=== PATIENT | male | born 1950 | race Caucasian/White ===

== ENCOUNTER 2016-04-11 22:51 | Emergency (ER) | payer OTHER, MEDICARE ==
[2016-04-11] MEDS ORDERED: IBUPROFEN 800 MG TABLET PO STA (23:12)
[2016-04-11] MEDS ORDERED: IBUPROFEN 800 MG TABLET PO ONE (23:13)
[2016-04-11] MEDS ORDERED: IPRATROPIUM/ALBUTEROL 3 ML NEB INH STA (23:54)
[2016-04-11] MEDS ORDERED: IPRATROPIUM/ALBUTEROL 3 ML NEB INH ONE (23:59)
[2016-04-12] MEDS ORDERED: OSELTAMIVIR 75 MG CAPSULE PO STA (00:52)
[2016-04-12] MEDS ORDERED: OSELTAMIVIR 75 MG CAPSULE PO ONE (00:55)
== END 2016-04-12 02:28 | disposition home or self-care (01) ==
DX: B34.9 Viral infection, unspecified (principal); R06.00 Dyspnea, unspecified; R00.0 Tachycardia, unspecified
CPT/HCPCS: 36415; 71020; 85379; 87275; 87276; 94640; 99283; 99284; A9270; J7620

== ENCOUNTER 2021-03-27 10:43 | Outpatient (CLI) | payer MEDICARE, OTHER | END 2021-03-27 23:59 | disposition home or self-care (01) | LOC: LAB.R 10:43 | PROVIDERS: ATTEND Internal Medicine | DX: U07.1 COVID-19 (principal) ==

== ENCOUNTER 2021-10-02 14:38 | Emergency (ER) | payer MEDICARE, OTHER ==
[2021-10-02 14:45] VITALS: BP 170/90
[2021-10-02] MEDS ORDERED: methocarbamoL 500 MG TABLET PO STA (15:37)
[2021-10-02] MEDS ORDERED: KETOROLAC 30 MG/ML VIAL IM STA (15:37)
[2021-10-02] MEDS ORDERED: ACETAMINOPHEN 325 MG TABLET PO STA (15:37)
--- NOTE | 2021-10-02 15:37 | ED Physician Documentation ---
PD HPI LOWER EXT INJURY - Stated complaint Stated Complaint: R HIP PX - Chief complaint Chief Complaint: Trauma Ext - History obtained from History obtained from: Patient - History of Present Illness PD HPI LOW EXT INJURY LOCATION: Right - Additional information Additional information: 71-year-old male presents for evaluation of right hip pain. Patient states that he had mild pain in his right hip and right knee after a fall 2 weeks prior, and it had gradually improved, however after sitting on a barstool today the pain became much worse. Pain is aching, constant, worse with movement. Nothing makes it better, reports associated numb sensation at the top of his thigh. Patient denies difficulty ambulating, denies bowel or bladder incontinence, denies saddle anesthesia. Review of Systems Ten Systems: 10 systems reviewed and negative Constitutional: denies: Fever, Chills Nose: denies: Rhinorrhea / runny nose, Foreign Body Cardiac: denies: Chest pain / pressure, Palpitations, Pedal edema Respiratory: denies: Dyspnea, Cough GI: denies: Abdominal Pain, Nausea, Vomiting, Constipation, Diarrhea : denies: Dysuria, Frequency, Unable to Void Skin: denies: Rash, Lesions Musculoskeletal: reports: Joint pain (R hip). denies: Extremity pain Neurologic: reports: Numbness (top of R thigh). denies: Generalized weakness, Focal weakness PD PAST MEDICAL HISTORY - Past Medical History Cardiovascular: None Respiratory: None Endocrine/Autoimmune: None GI: GERD - Past Surgical History Past Surgical History: No - Present Medications Home Medications: Ambulatory Orders Medication Instructions Recorded Confirmed Esomeprazole Magnesium [Nexium] 40 mg PO DAILY 04/11/16 04/11/16 Albuterol Sulfate [Proventil Hfa 1 - 2 puffs INH Q4H PRN #1 inhaler 04/12/16 Inhaler] Oseltamivir [Tamiflu] 75 mg PO BID #10 capsule 04/12/16 Naproxen 500 mg PO BID #30 tab 10/02/21 dexAMETHasone [Decadron] 4 mg PO BIDWM #10 tablet 10/02/21 methocarbamoL [Robaxin] 500 mg PO Q6H #20 tablet 10/02/21 - Allergies Allergies/Adverse Reactions: Allergies Allergy/AdvReac Type Severity Reaction Status Date / Time calamine [From Caladryl] Allergy Hives Verified 10/02/21 14:46 camphor [From Caladryl] Allergy Hives Verified 10/02/21 14:46 pramoxine HCl * Allergy Hives Verified 10/02/21 14:46 [From Caladryl] - Social History Does the pt smoke?: No Smoking Status: Never smoker Does the pt drink ETOH?: No Does the pt have substance abuse?: No - Immunizations Immunizations are current?: Yes - POLST Patient has POLST: No PD ED PE NORMAL - Vitals Vital signs reviewed: Yes - General General: Alert and oriented X 3, Well developed/nourished, Other (in pain) - HEENT HEENT: Atraumatic, PERRL, EOMI, Ears normal - Neck Neck: Supple, no meningeal sign, No bony TTP - Cardiac Cardiac: RRR, No rub, Strong equal pulses - Respiratory Respiratory: No respiratory distress, Clear bilaterally - Abdomen Abdomen: Soft, Non tender, Non distended, No organomegaly - Male Male : Deferred - Rectal Rectal: Deferred - Back Back: No CVA TTP, No spinal TTP, Other (healing bruise R flank) - Derm Derm: Warm and dry, No rash - Extremities Extremities: No deformity, No tenderness to palpate, No edema, Other (Positive GIRISH test R side, negative straight leg raise bilaterally) - Neuro Neuro: Alert and oriented X 3, 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 Neurovascularly intact, patient reports a numb sensation over the top of his thigh, however sensation is intact and equal bilaterally, patient ambulatory, no difference in sensation between legs. Positive GIRISH test on right side, negative straight leg raise bilaterally. Patient's reported concern that the patient possibly has a renal injury after his fall from 2 weeks ago. Renal injury considered highly unlikely however CT imaging offered to patient if there was concern for underlying injury from the fall 2 [address]. Patient declined CT imaging, stated that he did not think that was was going on today and requesting medications only for symptoms. X-ray imaging negative for acute findings. Mild improvement with medications provided. Numerous nonnarcotic analgesia sent to pharmacy, patient counseled on stretching exercises and PCP follow up. Strict ED return precautions provided. Departure - Departure Disposition: Home, Self Care Clinical Impression: Sciatica Qualifiers: Laterality: right Qualified Code(s): M54.31 - Sciatica, right side Condition: Stable Instructions: ED Back Care Tips, ED Exercises Lumbar Muscles, ED Sciatica Prescriptions: dexAMETHasone [Decadron] 4 mg PO BIDWM #10 tablet Naproxen 500 mg PO BID #30 tab methocarbamoL [Robaxin] 500 mg PO Q6H #20 tablet Discharge Date/Time: 10/02/21 17:28
[2021-10-02] MEDS ORDERED: LIDOCAINE PATCH 5% TOP STA (15:38)
[2021-10-02] MEDS ORDERED: CHERRY SYRUP 10 ML UDC PO ONE (15:38)
[2021-10-02] MEDS ORDERED: DEXAMETHASONE 10 MG/ML VIAL PO STA (15:38)
--- NOTE | 2021-10-02 15:41 | XRAY Report ---
PROCEDURE: Hip w/Pelvis 2-3V RT INDICATIONS: hip/knee pain TECHNIQUE: AP pelvis with lateral view(s) of the right hip(s). COMPARISON: None. FINDINGS: Bones: No fractures or dislocations. Moderate bilateral hip joint osteoarthritic changes are seen w ith superior joint space narrowing and subchondral sclerosis. No evidence of avascular necrosis of fe moral head. Pelvic ring appears intact. No suspicious bony lesions. Soft tissues: The visualized bowel gas pattern is normal. No suspicious soft tissue calcifications. IMPRESSION: No acute right hip fracture or dislocation. Bilateral hip joint osteoarthritis. No eviden ce of avascular necrosis. Reviewed by: Jamie Navas MD on 10/02/2021 3:39 PM PDT Approved by: Jamie Navas MD on 10/02/2021 3:39 PM PDT Station ID: [id number]
--- NOTE | 2021-10-02 15:41 | XRAY Report ---
PROCEDURE: Knee 4 View RT INDICATIONS: hip/knee pain TECHNIQUE: 4 views of the right knee(s) were acquired. COMPARISON: None. FINDINGS: Bones: No fractures or dislocations. Mild to moderate tricompartmental osteoarthritis in right knee is seen more prominent in medial femoral tibial compartment. No suspicious bony lesions. Soft tissues: Moderate suprapatellar joint effusion is seen. No suspicious soft tissue calcification s. IMPRESSION: Mild to moderate tricompartmental osteoarthritis in right knee. Moderate suprapatellar j oint effusion. No acute fracture or dislocation. Reviewed by: Jamie Navas MD on 10/02/2021 3:39 PM PDT Approved by: Jamie Navas MD on 10/02/2021 3:39 PM PDT Station ID: [id number]
== END 2021-10-02 17:28 | disposition home or self-care (01) ==
LOC: ED 14:38
DX: M54.31 Sciatica, right side (principal)
CPT/HCPCS: 73502; 73564; 99284; A9270; 86850; 86900; 86901

== ENCOUNTER 2022-11-23 12:40 | Outpatient (CLI) | payer MEDICARE, OTHER | END 2022-11-23 12:41 | disposition critical access hospital (66) | LOC: EMS 12:40 | DX: S99.912A Unspecified injury of left ankle, initial encounter (principal); W11.XXXA Fall on and from ladder, initial encounter; Y93.89 Activity, other specified; Y92.008 Other place in unspecified non-institutional (private) residence as the place of occurrence of the external cause | CPT/HCPCS: A0425; A0427 ==

== ENCOUNTER 2022-11-23 13:04 | Emergency (ER) | payer MEDICARE, OTHER ==
[2022-11-23] MEDS ORDERED: SODIUM CHLORIDE 0.9% 1,000 ML IV STA (13:20)
[2022-11-23] MEDS ORDERED: HYDROmorphone 1 MG/ML CARPUJECT IVP STA ×2 (13:20→14:35)
--- NOTE | 2022-11-23 13:30 | ED Physician Documentation ---
History of Present Illness - Stated complaint Stated Complaint: L FOOT/ANKLE PX/FALL FROM LADDER - Chief complaint Chief Complaint: Trauma Ext - History obtained from History obtained from: Patient - History of Present Illness Timing: How many hours ago (1) - Additonal information Additional information: Patient is a 72-year-old male who presents to the emergency department after a fall off of a ladder while picking plums today. He landed on the left ankle and states that the foot was pointing sideways. EMS was called and placed him in a splint, given 150 mcg of fentanyl. And then the patient was brought into the emergency department. Neurovascular intact. No head, neck, back pain. Does not take any medications at home. No cardiac history. No loss of consciousness. No vomiting. No bleeding. No lacerations or open fractures. Review of Systems Constitutional: denies: Fever, Chills Respiratory: denies: Cough GI: denies: Nausea, Vomiting, Diarrhea Skin: denies: Rash Musculoskeletal: denies: Neck pain, Back pain Neurologic: denies: Headache, Head injury, LOC PD PAST MEDICAL HISTORY - Past Medical History Past Medical History: Yes Cardiovascular: None Respiratory: None Endocrine/Autoimmune: None GI: GERD - Past Surgical History Past Surgical History: No - Present Medications Home Medications: Ambulatory Orders Medication Instructions Recorded Confirmed Esomeprazole Magnesium [Nexium] 40 mg PO DAILY 04/11/16 04/11/16 Albuterol Sulfate [Proventil Hfa 1 - 2 puffs INH Q4H PRN #1 inhaler 04/12/16 Inhaler] Oseltamivir [Tamiflu] 75 mg PO BID #10 capsule 04/12/16 Naproxen 500 mg PO BID #30 tab 10/02/21 dexAMETHasone [Decadron] 4 mg PO BIDWM #10 tablet 10/02/21 methocarbamoL [Robaxin] 500 mg PO Q6H #20 tablet 10/02/21 - Allergies Allergies/Adverse Reactions: Allergies Allergy/AdvReac Type Severity Reaction Status Date / Time calamine [From Caladryl] Allergy Hives Verified 11/23/22 13:18 camphor [From Caladryl] Allergy Hives Verified 11/23/22 13:18 pramoxine HCl * Allergy Hives Verified 11/23/22 13:18 [From Caladryl] - Social History Does the pt smoke?: No Smoking Status: Never smoker Does the pt drink ETOH?: No Does the pt have substance abuse?: No - Immunizations Immunizations are current?: Yes - POLST Patient has POLST: No PD ED PE NORMAL - Vitals Vital signs reviewed: Yes - General General: Alert and oriented X 3, No acute distress - HEENT HEENT: Atraumatic, PERRL - Neck Neck: Supple, no meningeal sign, No bony TTP - Cardiac Cardiac: RRR - Respiratory Respiratory: No respiratory distress, Clear bilaterally - Abdomen Abdomen: Soft, Non tender, Non distended - Back Back: No spinal TTP - Derm Derm: Warm and dry - Extremities Extremities: Other (Obvious deformity to the left ankle, moderate swelling. Neurovascular intact. No knee or hip pain on the left side. No foot tenderness.) - Neuro Neuro: Alert and oriented X 3 - Psych Psych: Normal mood, Normal affect Results - Vitals Vitals: Vital Signs - 24 hr 11/23/22 11/23/22 11/23/22 13:14 14:21 14:24 Temperature 36.8 C Heart Rate 74 72 66 Respiratory 18 13 22 Rate Blood Pressure 165/96 H 166/93 H 166/93 H O2 Saturation 100 99 97 11/23/22 11/23/22 11/23/22 14:27 14:32 14:35 Temperature Heart Rate 66 70 78 Respiratory 26 H 25 H 22 Rate Blood Pressure 126/105 H 162/87 H O2 Saturation 99 95 11/23/22 14:43 Temperature Heart Rate 73 Respiratory 17 Rate Blood Pressure 150/82 H O2 Saturation 97 Oxygen O2 Source Room air - Rads (name of study) Left ankle x-ray Relevant Findings:: Final report received, See rad report Left tib-fib x-ray Relevant Findings:: Final report received, See rad report Procedures - Splint (location) - Minor Left lower extremity Splint applied by: Physician, Tech Type of splint: Fiberglass, Short leg, Posterior, Stirrup Other: Patient tolerated well, No complications, Neurovascular intact - Reduction Body part reduced: Left, Ankle Fracture or dislocation: Fracture dislocation Anesthesia: Other (propofol) Reduction aftercare: NV intact, Xray confirms reduction, Alignment improved, Splint applied, Patient tolerated well - Procedural sedation Sedation prep: Informed consent, Time out completed, Last meal, ASA 1 - healthy, IV O2 monitor, ET CO2 monitor, RT present Sedation Medications: propofol Mallampati classification: II Patient status during sedation: Vitals remained stable, Maintained airway, Recovered uneventfully Sedation recovery: Recovered uneventfully Time in sedation (Minutes): 20 PD Medical Decision Making - ED course Complexity details: reviewed results, re-evaluated patient, considered differential, d/w patient, d/w family ED course: Patient with a complex distal tibia/fibula fracture and ankle dislocation. NVI. Reduced and splinted. Discussed with Dr. Rodriguez, orthopedics who recommends discussion with [facility] for potential transfer. Discussed with [facility], Dr. Siu (ortho) and recommends Transfer for operative repair. Discussed the case with Dr. Ammon Mcwilliams, emergency department physician at [facility]. COBRA forms completed. This document was made in part using voice recognition software. While efforts are made to proofread this document, sound alike and grammatical errors may occur. Departure - Departure Disposition: 02 Transfer Acute Care Hosp Clinical Impression: Trimalleolar fracture of left ankle Qualifiers: Encounter type: initial encounter Fracture type: closed Qualified Code(s): S82.852A - Displaced trimalleolar fracture of left lower leg, initial encounter for closed fracture Condition: Stable Forms: PCP List
[2022-11-23] MEDS ORDERED: PROPOFOL 200 MG/20 ML VIAL IVP STA (13:49)
--- NOTE | 2022-11-23 14:14 | XRAY Report ---
PROCEDURE: Ankle 3 View LT INDICATIONS: fall, ankle pain TECHNIQUE: 3 views of the ankle were acquired. COMPARISON: None. FINDINGS: Bones: There is a moderately displaced and angulated comminuted fracture of the distal tibia. Modera tely displaced and angulated comminuted fracture distal fibula. Soft tissues: No tibiotalar joint effusion. Achilles tendon appears normal. IMPRESSION: Distal tibial and fibular fractures. Reviewed by: Joanna Solorzano MD on 11/23/2022 2:12 PM PDT Approved by: Joanna Solorzano MD on 11/23/2022 2:12 PM PDT Station ID: [id number]
--- NOTE | 2022-11-23 14:14 | XRAY Report ---
PROCEDURE: Tib/Fib LT INDICATIONS: fall, leg pain TECHNIQUE: 2 views of the tibia and fibula were acquired. COMPARISON: None. FINDINGS: Bones: Moderately displaced and evaluated comminuted fractures of the distal tibia and fibula. Soft tissues: No suspicious soft tissue calcifications or masses. IMPRESSION: Distal tibial and fibular fractures. Reviewed by: Joanna Solorzano MD on 11/23/2022 2:13 PM PDT Approved by: Joanna Solorzano MD on 11/23/2022 2:13 PM PDT Station ID: [id number]
[2022-11-23] MEDS ORDERED: diazePAM INJ 5 MG/ML SYRINGE IVP STA (15:26)
--- NOTE | 2022-11-23 15:41 | XRAY Report ---
PROCEDURE: Ankle 3 View LT INDICATIONS: L ankle post reduction TECHNIQUE: 3 views of the ankle were acquired. COMPARISON: Left ankle radiographs same day FINDINGS: Overlying casting material appears fine bony detail. Redemonstrated comminuted and displaced distal t ibia and fibular fractures. Distraction of tibial fracture fragments appears slightly improved. Fibul ar fracture angulation appears slightly improved however comparison is difficult due to differences i n exam positioning. IMPRESSION: Distal tibia and fibula fractures post reduction. Reviewed by: Karson Yarbrough MD on 11/23/2022 3:40 PM PDT Approved by: Karson Yarbrough MD on 11/23/2022 3:40 PM PDT Station ID: [id number]
[2022-11-23 19:35] VITALS: BP 140/80; O2SAT 100
== END 2022-11-23 19:31 | disposition short-term general hospital (02) ==
LOC: ED 13:04
DX: S82.852A Displaced trimalleolar fracture of left lower leg, initial encounter for closed fracture (principal); W11.XXXA Fall on and from ladder, initial encounter; Y93.89 Activity, other specified; Z79.899 Other long term (current) drug therapy
CPT/HCPCS: 27788; 94770; 99152; 99284

== ENCOUNTER 2022-11-23 19:31 | Outpatient (CLI) | payer MEDICARE, OTHER | END 2022-11-23 23:59 | disposition short-term general hospital (02) | LOC: EMS 19:31 | PROVIDERS: ATTEND Emergency Medicine | DX: S82.892A Other fracture of left lower leg, initial encounter for closed fracture (principal); W11.XXXA Fall on and from ladder, initial encounter; Y92.009 Unspecified place in unspecified non-institutional (private) residence as the place of occurrence of the external cause | CPT/HCPCS: A0425; A0426 ==

== ENCOUNTER 2023-03-19 12:23 | Outpatient (CLI) | payer MEDICARE, OTHER ==
--- NOTE | 2023-03-19 15:07 | Ultrasound Report ---
PROCEDURE: Extremity Soft Tissue Limited INDICATIONS: INFECTED WOUND LT LOWER LEG TECHNIQUE: Real-time scanning was performed of the left lower medial leg in the area of wound/bliste rs, with image documentation. COMPARISON: None. FINDINGS: In the area of current clinical concern within the soft tissues is a hypoechoic mobile are a of material with no internal vascularity, measuring up to 2.9 x 3.7 x 1.0 cm. The appearance is mos t likely a manifestation of abscess formation. IMPRESSION: Presumed abscess measuring 2.9 x 3.7 x 1.0 cm in the soft tissues immediately deep to th e area of current clinical concern. If clinically warranted additional anatomic detail could be obtai terry by contrast-enhanced CT or MR scanning. Reviewed by: Sanchez Tidwell MD on 03/19/2023 3:06 PM PST Approved by: Sanchez Tidwell MD on 03/19/2023 3:06 PM PST Station ID: [id number]
== END 2023-03-19 12:24 | disposition home or self-care (01) ==
LOC: DI 12:23
PROVIDERS: ATTEND Internal Medicine
DX: L08.9 Local infection of the skin and subcutaneous tissue, unspecified (principal)

== ENCOUNTER 2023-08-02 15:18 | Outpatient (CLI) | payer MEDICARE, OTHER ==
--- NOTE | 2023-08-02 16:36 | XRAY Report ---
PROCEDURE: Hip w/Pelvis 2-3V RT INDICATIONS: BACK PAIN/HIP PAIN TECHNIQUE: 2 views of the hip were acquired. COMPARISON: None. FINDINGS: Bones: No fractures or dislocations. No suspicious bony lesions. Soft tissues: No suspicious soft tissue calcifications or masses. IMPRESSION: No acute bony abnormality. If there remains a high clinical concern for fracture, consider cross-sect ional imaging now. If pain persists, consider repeat x-ray in 10-14 days or cross-sectional imaging. Reviewed by: Fidelina Carr MD on 08/02/2023 4:35 PM PDT Approved by: Fidelina Carr MD on 08/02/2023 4:35 PM PDT Station ID: [id number]
--- NOTE | 2023-08-03 00:53 | XRAY Report ---
PROCEDURE: Lumbar Spine 2-3V INDICATIONS: BACK PAIN/HIP PAIN TECHNIQUE: 3 view(s) of the lumbar spine were acquired. COMPARISON: None. FINDINGS: Bones: Vertebral body height and alignment is maintained. No suspicious bony lesions. Soft tissues: Overlying bowel gas pattern is normal. No suspicious soft tissue calcifications. IMPRESSION: Unremarkable lumbar spine radiographs Reviewed by: Jorge Kamara MD on 08/02/2023 11:52 PM AKDT Approved by: Jorge Kamara MD on 08/02/2023 11:52 PM AKDT Station ID: [id number]
== END 2023-08-02 15:19 | disposition home or self-care (01) ==
LOC: DI 15:18
PROVIDERS: ATTEND Internal Medicine
DX: M54.9 Dorsalgia, unspecified (principal); M25.551 Pain in right hip

== ENCOUNTER 2023-08-13 09:39 | Outpatient (CLI) | payer MEDICARE, OTHER ==
--- NOTE | 2023-08-13 13:01 | MRI Report ---
PROCEDURE: Lumbar Spine WO INDICATIONS: LOW BACK PAIN TECHNIQUE: Noncontrast sagittal T1 spin echo and T2 fast echo, sagittal STIR, axial T1 and T2 fast spin echo thr ough the lumbar spine. In cases with scoliosis, additional coronal T2 fast spin echo may be performe d. COMPARISON: X-ray lumbar spine 08/02/2023 FINDINGS: Image quality: Excellent. Alignment and Curvature: There is normal bony alignment. Bone Marrow: Marrow is of normal overall signal. Focus of increased T1 and T2 signal present L1 sugg estive of hemangioma. No acute vertebral body compression fractures. Spinal Cord: Conus medullaris terminates at the L1 level. Visualized cord demonstrates normal signa l and size. Paraspinous Soft Tissues: Heterogeneous appearing mass measuring 1.7 x 1.7 cm in the posterior right paraspinous muscle at the level of L1 is present on series 6 image 13. No prior exams are available f or comparison. Scattered bilateral simple renal cysts are present. Discs: Scattered mild multilevel disc desiccation. T12-L1: No disc bulge, spinal stenosis or foraminal narrowing. L1-L2: No disc bulge, spinal stenosis or foraminal narrowing. L2-L3: Minimal disc bulge without spinal stenosis or foraminal narrowing. Facet and ligamentum fla vum hypertrophy are present. L3-L4: Mild disc bulge with moderate to severe spinal stenosis. Minimal to mild bilateral foraminal narrowing with facet and ligamentum flavum hypertrophy. L4-L5: Mild disc bulge with moderate spinal stenosis. Moderate right foraminal narrowing with facet and ligamentum flavum hypertrophy. L5-S1: Mild disc bulge with moderate spinal stenosis. Moderate to severe bilateral foraminal narrow ing, right greater than left. Facet and ligamentum flavum hypertrophy are present. IMPRESSION: Scattered multilevel disc bulges. Multilevel spinal stenosis most severe at L3-4 secondary to disc bulge with contributing effect of fa cet/ligamentum flavum arthropathy. 1.7 x 1.7 cm posterior right paraspinous muscle mass at the level of L1 as described above. Etiology is indeterminate on the basis of this exam. However, further evaluation with contrast MRI is recommen ded. Reviewed by: [place] Daniel MD on 08/13/2023 12:59 PM PDT Approved by: [place]ia Daniel MD on 08/13/2023 12:59 PM PDT Station ID: [id number]
== END 2023-08-13 09:40 | disposition home or self-care (01) ==
LOC: DI 09:39
PROVIDERS: ATTEND Internal Medicine
DX: M51.36 Other intervertebral disc degeneration, lumbar region (principal); M48.061 Spinal stenosis, lumbar region without neurogenic claudication; M51.37 Other intervertebral disc degeneration, lumbosacral region; M48.07 Spinal stenosis, lumbosacral region; R93.7 Abnormal findings on diagnostic imaging of other parts of musculoskeletal system

== ENCOUNTER 2023-08-27 15:08 | Outpatient (CLI) | payer MEDICARE, OTHER ==
[2023-08-27] MEDS ORDERED: GADOTERATE MEGLUMINE 5 MMOL/10 ML VIAL ONE (15:34)
[2023-08-27] MEDS ORDERED: GADOTERATE MEGLUMINE 10 MMOL/20 ML VIAL ONE (15:34)
[2023-08-27 15:58] LABS: CREATININE 1.2 mg/dL (0.6-1.3)
[2023-08-27] MEDS: GADOTERATE MEGLUMINE 10 MMOL/20 ML VIAL IVP ONE (17:27)
--- NOTE | 2023-08-30 19:52 | MRI Report ---
PROCEDURE: Lumbar Spine W/WO INDICATIONS: MASS OF BACK TECHNIQUE: Noncontrast sagittal T1 spin echo and T2 fast echo, sagittal STIR, axial T1 and T2 fast spin echo thr ough the lumbar spine. In cases with scoliosis, additional coronal T2 fast spin echo may be performe d. COMPARISON: X-ray lumbar spine 08/02/2023 FINDINGS: Image quality: Excellent. Alignment and Curvature: There is normal bony alignment. Bone Marrow: L1 hemangioma. No acute vertebral body compression fractures. Spinal Cord: Conus medullaris terminates at the L1 level. Visualized cord demonstrates normal signa l and size. Paraspinous Soft Tissues: Heterogeneous appearing mass measuring 1.7 x 1.7 cm in the posterior right paraspinous muscle at the level of L1 shows dense enhancement. Discs: Scattered mild multilevel disc desiccation. T12-L1: No disc bulge, spinal stenosis or foraminal narrowing. L1-L2: No disc bulge, spinal stenosis or foraminal narrowing. L2-L3: Minimal disc bulge without spinal stenosis or foraminal narrowing. Facet and ligamentum fla vum hypertrophy are present. L3-L4: Mild disc bulge with moderate to severe spinal stenosis. Minimal to mild bilateral foraminal narrowing with facet and ligamentum flavum hypertrophy. L4-L5: Mild disc bulge with moderate spinal stenosis. Moderate right foraminal narrowing with facet and ligamentum flavum hypertrophy. L5-S1: Mild disc bulge with moderate spinal stenosis. Moderate to severe bilateral foraminal narrow ing, right greater than left. Facet and ligamentum flavum hypertrophy are present. IMPRESSION: Soft tissue mass in the right paraspinal musculature shows dense enhancement. Consider CT-guided perc utaneous biopsy Reviewed by: Jorge Kamara MD on 08/30/2023 6:50 PM AKNURA Approved by: Jorge Kamara MD on 08/30/2023 6:50 PM AKDT Station ID: [id number]
== END 2023-08-27 15:09 | disposition home or self-care (01) ==
LOC: LAB 15:08
PROVIDERS: ATTEND Internal Medicine
DX: M54.50 Low back pain, unspecified (principal); R22.2 Localized swelling, mass and lump, trunk; Z79.899 Other long term (current) drug therapy
CPT/HCPCS: 36415; 72158; 82565; A9575

== ENCOUNTER 2023-11-10 14:07 | Outpatient (CLI) | payer MEDICARE, OTHER | END 2023-11-10 14:08 | disposition home or self-care (01) | LOC: RT 14:07 | PROVIDERS: ATTEND Internal Medicine | DX: I45.81 Long QT syndrome (principal) | CPT/HCPCS: 93005 ==